=== PATIENT | male | born 1990 | race Caucasian/White ===

== ENCOUNTER 2019-02-21 20:15 | Emergency (ER) | payer OTHER ==
[~2019-02-21] VITALS: Ht 172.7 cm; Wt 77.7 kg
[2019-02-21 23:15] VITALS: BP 128/74
== END 2019-02-21 23:15 | DRG 605 ==
LOC: ED 20:15
DX: S00.81XA Abrasion of other part of head, initial encounter (principal); S63.501A Unspecified sprain of right wrist, initial encounter; Y04.0XXA Assault by unarmed brawl or fight, initial encounter; Y92.149 Unspecified place in prison as the place of occurrence of the external cause